=== PATIENT | female | born 1980 | race Caucasian/White ===

== ENCOUNTER 2021-12-14 09:29 | Outpatient (CLI) | payer OTHER, SELFPAY ==
--- NOTE | ~2021-12-14 | US_ITS ---
EXAMINATION:US venous doppler LE LT INDICATION:Left leg edema and pain TECHNIQUE: Multiple grayscale, color flow and Doppler images of the left lower extremity deep venous systems were obtained and reviewed. COMPARISON:No prior studies for comparison. FINDINGS: The common femoral, superficial femoral and popliteal veins demonstrate normal respiratory variation, augmentation and compressibility. Color flow is also seen within the posterior tibial, pe roneal, greater saphenous and profunda veins. IMPRESSION: 1: No lower extremity deep venous thrombosis. Reviewed, dictated and finalized at location B. [employer]
== END 2021-12-14 09:30 | disposition home or self-care (01) ==
PROVIDERS: PCP Family Medicine; Visit Provider Obstetrics & Gynecology
DX: R60.0 Localized edema (principal)
CPT/HCPCS: 93971

== ENCOUNTER 2022-02-06 14:30 | Outpatient (RCR) | payer OTHER, SELFPAY ==
--- NOTE | 2022-02-07 10:05 | PC.NURSE ---
In - 1430 Out -1638 Reason for visit: Latch issues History: Mother delivered Primary C/S at [facility] on 01/05/2022 after SROM, labor Augmented and FHT's going down with contraction and pushing for 1 hour , then C/S. Mother has a history of low progesterone, endometriosis removal 10 yrs ago, and doesn't recall a large blood loss after delivery or any other complications. Mother states she desires to breastfeed and has a Spectra pump but has not initiated pumping. She agrees that she feels a let down after a couple of min of infant nursing. Infant born at 38 w 6 d and has a history of a tied frenulum that was clipped at the hospital. There has been supplementation with formula through the night time at least once in a 24 hour day. has had 8 wets in 24 hours and 5-6 stools. Stool is yellow, pasty and some seediness. Observations: Mother has everted nipples with no evidence of injury. Breast are similar in size and shape with no redness. Mother is unsure of when her milk came in but has milk now. Infant has a wide open gape after encouragement for mother to allow time to wait for the 130-150 degree open for optimal latching to attempt to get more than nipple into infant's mouth. Mother's nipples are approximately 21 mm long. Mother latches and denies any pain. Infant detach due to latch observed to not be 130-150 degrees and there is not good rocking motion or swallowing. Nipple is slightly misshaped and mother visualized the change in her nipple. When latches optimally to the breast swallowing frequently can be heard as the let down occurs. detaches after 15-20 min and nipple is not misshaped. Mother voiced understanding of the difference in latch and stimulating to drink at the breast and not suckle on the nipple. After mother had breast fed on both breast was weighed and there was a 10 gm increase. On the first attempt at infant had readjusted, mother had no pain or discomfort but voiced noticing the difference between infant drinking at the breast versus suckle for comfort. demonstrates the ability to latch effectively with the new range of tongue movement over the gum line freely. Mother offered both breast for a second time and RN encouraged more assertive teaching infant to latch optimally, drinking at the breast with more breast into mouth. Due to infant voiding a great amount on the scale we were unsuccessful at obtaining an accurate post feed weight. Infant had a yellow, seedy, and moderate size stool during the visit as well. B.W. was 7lbs 5oz and today the weight is 7 lbs 14 oz with only a diaper. Plan of Care: Mother plans to be assertive with stimulating to wake and drink at the breast rather than suckle for comfort. Parents are prepared with skills, guide resource, to put forth effort to obtain a good position for and to change positions when needed, undress for wakefulness if needed, and to assure optimal latching for good transferring of milk and improve milk production 10-12 times in 24 hours listening and watching for swallowing during feeding time instead of suckling on the nipple. Assessed and reviewed Patient's personal spectra 1 pump flange fit, cleaning and care, there is to be no pain with pumping, power pumping for increasing milk supply, and collection/storage of human milk. Follow up plans: There is a plan to follow up with a phone call to assess how things are going. Reviewed reasons to call ICP.
== END 2022-05-07 23:59 | disposition home or self-care (01) ==
LOC: ANHOBOP 14:30
PROVIDERS: PCP Family Medicine; Visit Provider Pediatrics
DX: Z39.1 Encounter for care and examination of lactating mother (principal)
CPT/HCPCS: 99204; G0463

== ENCOUNTER 2024-07-23 12:52 | Outpatient (CLI) | payer OTHER, SELFPAY ==
--- NOTE | ~2024-07-23 | MMUS_ITS ---
EXAMINATION: MM diagnostic quoc BI w porfirio, US breast BI complete HISTORY: Galactorrhea TECHNIQUE: Additional 3-D tomosynthesis images of the breasts were performed and synthetic 2-D images were generated. CAD analysis was submitted and interpreted. High resolution complete bilateral breas t ultrasound was performed. COMPARISON: None BREAST PARENCHYMAL COMPOSITION: Dense: The breasts are extremely dense, which lowers the sensitivity of mammography. FINDINGS: MAMMOGRAPHIC FINDINGS: There are no suspicious masses, calcifications or architectural distortion in either breast to sugges t malignancy. ULTRASOUND: Complete US of all 4 quadrants of the breast/s and retroareolar region was reviewed. Right breast: Normal heterogeneous echotexture without focal solid or cystic mass. Left breast: At 12:00 near the nipple there is an oval circumscribed parallel oriented hypoechoic 3 m m mass without internal vascularity or significant posterior features, likely benign. IMPRESSION: 1. Probable benign 3 mm left breast mass 12:00 near the nipple. 2. Recommend 6 month follow-up Limited left breast ultrasound BI-RADS category 3, probably benign findings. Reviewed, dictated and finalized at location B. IMPRESSION: 1. Probable benign 3 mm left breast mass 12:00 near the nipple. 2. Recommend 6 month follow-up Limited left breast ultrasound BI-RADS category 3, probably benign findings.
== END 2024-07-23 12:53 | disposition home or self-care (01) ==
PROVIDERS: PCP Family Medicine; Visit Provider Family Medicine
DX: N64.3 Galactorrhea not associated with childbirth (principal)
CPT/HCPCS: 76641; 77062; 77066; G0279

== ENCOUNTER 2025-02-10 10:23 | Outpatient (CLI) | payer OTHER, SELFPAY ==
--- NOTE | ~2025-02-10 | US_ITS ---
US breast LT limited 02/10/2025 10:51 Indication: Follow-up left breast mass Procedure: High-resolution Limited ultrasound of the breasts Comparison: 07/23/2024 Findings: At 12:00 near the nipple there is an oval circumscribed parallel oriented hypoechoic mass w ithout internal vascularity. There is posterior acoustic enhancement. This mass measures 3 mm without significant change from prior study. Impression: 1: Stable left breast mass at 12:00 near the nipple measuring 3 mm, likely benign. BI-RADS CATEGORY 3-PROBABLY BENIGN FINDING RECOMMENDATION: Six-month follow-up bilateral mammogram and Limited left breast ultrasound recommende d. Reviewed, dictated and finalized at location A. Impression: 1: Stable left breast mass at 12:00 near the nipple measuring 3 mm, likely bri gn. BI-RADS CATEGORY 3-PROBABLY BENIGN FINDING RECOMMENDATION: Six-month follow-up bilateral mammogram and Limited left breast ultrasound recommended.
--- OUTSIDE RECORDS SUMMARY | 2025-02-10 11:41 | XMS_ITS | Clinical Summary ---
Author Organization [facility] Address [address] [place] [address] Care Team Providers Care Supervisor Lump Room Name Role Phone Nicho Roger MD Primary Care Provider [phone] Source Comments [facility],non-owned Affiliates and Associated Physician Practices is amultiple site organization consisting of ambulatory clinics and hospital sitesin [place], [place], [place] and [place]. This disclosure is being madepursuant to the Care Everywhere program and may not contain all information available regarding this patient. Last updated 18.[facility] [employer] Allergies Active Allergy Reactions Criticality Noted Date Comments Amoxicillin Diarrhea 12/03/2021 Medications * Be aware that medications may not be up to date on this document. Alwaysverify current medications with the patient. Docosahexaenoi c Acid ( DHA) 200 MG 2 Active Misc. Devices (BREAST PUMP) MISCIndication s:34 weeks gestation of (HCC) Use 1 Units as directed 1 Each 2 Active traMADol (ULTRAM) 50 MG tablet Take 1 (one) tablet by mouth every 6 hours as needed 20 tablet 2 Active acetaminophen (TYLENOL) 325 MG tablet Take 2 (two) tablets by mouth every 6 hours as needed for Fever or Pain Maximum allowable Acetaminophen amount = 4 Grams (4000 mg) / 24 hours. 2 Active ibuprofen (MOTRIN) 600 MG tablet Take 1 (one) tablet by mouth every 6 hours as needed for Pain 30 tablet 2 2 Active magnesium hydroxide (MILK OF MAGNESIA) 400 MG/5ML suspension Take 30 mL by mouth every 4 hours as needed for Constipation Active Active Problems Problem Noted Date Diagnosed Date care and examination 02/18/2022 Premature rupture of membranes in , ant epartum 01/08/2022 AMA (advanced maternal age) multigravida 35+ 38 weeks gestation of 11/12/2021 Resolved Problems Problem Noted Date Diagnosed Date Resolved Date , incidental 01/05/20222021 Immunizations Immunization Administration Dates Next Due MMR 01/06/2022(Deferred: Patient Condition - p-atient rubella immune) TDAP (7yrs+) 01/06/2022(Deferred: Patient Con dition),11/12/2021 Family History Medical History Relation Name Comments Cancer - Prostate Maternal Grandfather Cancer - Skin, Melanoma Maternal Grandfather CAD (Coronary Artery Disease) Maternal Grandmother Diabetes - Type 2 Maternal Grandmother Relation Name Status Comments Maternal Grandfather Maternal Grandmother Social History Tobacco Use Types Packs/Day Years Used Date Smoking Tobacco: Never Smokeless Tobacco: Never Alcohol Use Standard Drinks/Week Comments Not Currently 0 (1 standard drink = 0.6 oz pur e alcohol) PHQ-2 Answer Date Recorded Patient Health Questionnaire-2 Score 0 10/23/2024 [place] Depression Scale Answer Date Recorded RETIRED: Total Score 2 01/07/2022 Last EPDS Self Harm Result Not on file 01/07 Comments No Sex and Gender Information Value Date Recorded Sex Assigned at Not on file Legal Sex Female 4:24 AM [employer] Gender Identity Not on file Sexual Orientation Not on file Last Filed Vital Signs Vital Sign Reading Time Taken Comments Blood Pressure 100/58 02/18/2022 1:09 PM CDT Pulse 57 01/08/2022 10:20 AM CDT Temperature 36.7 C (98 F) 01/08/2022 10:20 AM CDT Respiratory Rate 14 01/07/2022 1:26 AM CDT Oxygen Saturation 100% 01/08/2022 10:20 AM CDT Inhaled Oxygen Concentration - - Weight 55.3 kg (122 lb) 02/18/2022 1:09 PM CDT Height 162.6 cm (5' 4 ) 01/05/2022 7:27 AM CDT Body Mass Index 20.94 01/05/2022 7:27 AM CDT Plan of Treatment Health Maintenance Due Date Last Done Comments LIPID TESTING 1981 MAMMOGRAM 1981 HEPATITIS C SCREENING 09/10/1999 HEPATITIS B VACCINE (1 of 3 - 19+ 3-dose series) 2000 COVID-19 VACCINE (4 - 2023-2 5 season) 2024 09/27/2021, 03/08/2021, 12/09/2020 DEPRESSION SCREENING 10/20/2024 PAP SMEAR 02/18/2025 02/18/2022, 02/18 (Done Outside Per Patient) INFLUENZA VACCINE (Season Ended) 2025 07/16/2021 ZOSTER VACCINE (1 of 2) 2031 DTAP/TDAP/TD VACCINES (2 - T d or Tdap) 11/12/2031 11/12/2021 HIV SCREENING Completed 06/15/2021 HIB VACCINE Aged Out No longer eligi ble based on patient's age to complete this topic HPV VACCINE Aged Out No longer eligi ble based on patient's age to complete this topic MENINGOCOCCAL (Group B) VACCINE SHARED DECISION-MAKING Aged Out No longer eligible based on patient's age to complete this topic MENINGOCOCCAL GROUPS A/C/Y/W VACCINE Aged Out No longer eligible based on patient's age to complete this topic PNEUMOCOCCAL VACCINE Aged Out No long er eligible based on patient's age to complete this topic Procedures Procedure Name Priority Date/Time Associated Diagnosis Comments PAP IG LB RFLX HPV APTIMA ASCU Routine 02/18/2022 2:10 PM CDT care and examination OB CONSOLE (EXTERNAL RESULTS) Routine 06/15/2021 from Last 3 Months or Most Recently Relevant to Health Maintenance Results * PAP IG LB RFLX HPV APTIMA ASCU (02/18/2022 2:10 PM CDT) Diagnosis [facility] INSURANCE BILL Comment:NEGATIVE FOR INTRAEP ITHELIAL LESION OR MALIGNANCY. Specimen Adequacy [facility] INSURANCE BILL Comment: Satisfactory for evaluation. Endocervical and/or squamous metaplastic cells (endocervical component) are present. Clinician Provided ICD10 [facility] INSURANCE BILL Comment:Z39.2 Performed by [facility] INSURANCE BILL Comment:Lacy Spencer, Cyto technologist (ASCP) Comment . [facility] INSURANCE BILL Note [facility] INSURANCE BILL Comment: The Pap smear is a screening test designed to aid in the detection of premalignant and malignant conditions of the uterine cervix. It is not a diagnostic procedure and should not be used as the sole means of detecting cervical cancer. Both false-positive and false-negative reports do occur. . IGLBP CPT Code Automation [facility] INSURANCE BILL Comment: This liquid based ThinPrep(R) pap test was screened with the use of an image guided system. Note [facility] INSURANCE BILL Comment: The HPV DNA reflex criteria were not met with this specimen result therefore, no HPV testing was performed. . Pathology/Cytolog y ENTIRE ENDOCERVIX / Unknown 02/18/2022 2:10 PM CDT 02/19/2022 Narrative [facility] INSURANCE BILL - 02/21/2022 5:08 PM CDT No. of containers..01 ThinPrep Vial Resulting Agency Comment Lab Testing performed at: [facility] [id number] Nicho Gupta MD LAB - PATHOLOGY/CYTOLOGY LINNEA DORAN Final Result [facility] INSURANCE BILL [address] [place] [address] * OB CONSOLE (EXTERNAL RESULTS) (06/15/2021) Hemoglobin (EXTERNAL RESULT) 12.9 gm/dL Hematocrit (EXTERNAL RESULT) ABO (External Results) B Rh Type (EXTERNAL RESULT) + Antibody Screen (EXTERNAL RESULT) neg Antibody Identification (EXTERNAL RESULT) Antibody Titer (EXTERNAL RESULT) MCV (EXTERNAL RESULT) HIV (EXTERNAL RESULT) neg RPR (EXTERNAL RESULT) NR Rubella Antibody IgG (EXTERNAL RESULT) Immune OB Blood Sugar (EXTERNAL RESULT) 88 Fasting Glucose (EXTERNAL RESULTS) GTT 1 Hour Glucose (EXTERNAL) GTT 2 Hour Glucose (EXTERNAL) Pap ThinPrep (EXTERNAL RESULT) Pap Smear (EXTERNAL RESULT) Chlamydia (EXTERNAL EXTERNAL) neg GC (EXTERNAL RESULT) neg HIV-2 Antibody (EXTERNAL RESULT) HIV-1/HIV 2 Antibody (EXTERNAL RESULT) HIV-1/2 Antibody + p24 Antigen (EXTERNAL RESULT) Treponema pallidum Antibody (EXTERNAL RESULT) GTT 3 Hour (EXTERNAL) Interpretation BRICK BURNER HEAD (EXTERNAL RESULT) Human papillomavirus DNA Probe (EXTERNAL RESULT) Human papillomavirus Genotype 16 (EXTERNAL RESULT) Glucose 1 Hour (EXTERNAL) Platelet Count (EXTERNAL RESULT) 221 Group B Strep Probe (EXTERNAL RESULT) Group B Strep Culture (EXTERNAL RESULT) Cystic Fibrosis Screen (EXTERNAL RESULT) Cystic Fibrosis Variant (EXTERNAL RESULT) Sickle Cell (EXTERNAL RESULT) Thalassemia (EXTERNAL RESULT) Blood Chromosome Analysis (EXTERNAL RESULT) Amnio Chromosome Analysis (EXTERNAL RESULT) Sequential Screen 1 (EXTERNAL RESULT) Sequential Screen 2 (EXTERNAL RESULT) Vipul-Sachs (EXTERNAL RESULT) Non Invasive Test NIPT (EXTERNAL RESULT) FAP Seq Interpretation (EXTERNAL RESULTS) Hemoglobin A1 (EXTERNAL RESULT) Hemoglobin A2 (EXTERNAL RESULT) Hemoglobin F (EXTERNAL RESULT) Hemoglobin S (EXTERNAL RESULT) Hemoglobin C (EXTERNAL RESULT) Hemoglobin E (EXTERNAL RESULT) Hemoglobin Other (EXTERNAL RESULT) BEN-A (EXTERNAL RESULT) BEN-A MoM (EXTERNAL RESULT) Alpha-Fetoprotein (EXTERNAL RESULT) AFP MoM (EXTERNAL RESULT) HCG AFP (EXTERNAL) Estriol AFP (EXTERNAL) UE3 MoM (EXTERNAL RESULT) Inhibin Dimeric (EXTERNAL RESULT) DARRELL Result (EXTERNAL RESULT) DARRELL MoM (EXTERNAL RESULT) hCG MoM (EXTERNAL RESULT) Alpha-Fetoprotein Interpretation (EXTERNAL RESULT) Urine Culture (EXTERNAL) T3 Free (EXTERNAL RESULT) Varicella zoster Virus Antibody IgG (EXTERNAL) HCG Quant (EXTERNAL) Glycohemoglobin A1C (EXTERNAL RESULT) Amphetamines (EXTERNAL RESULT) Barbiturates (EXTERNAL RESULT) Benzodiazepine (EXTERNAL RESULT) Buprenorine (EXTERNAL RESULT) Cannabinoids (EXTERNAL RESULT) Cocaine (EXTERNAL RESULT) Ethanol (EXTERNAL RESULT) MDMA Urine (EXTERNAL RESULT) Meperidine (EXTERNAL RESULT) Methadone Urine (EXTERNAL RESULT) Methamphetamine (EXTERNAL RESULT) Opiates Urine (EXTERNAL RESULT) Oxycodone Urine (EXTERNAL RESULT) Phencyclidine (EXTERNAL RESULT) Propoxyphene (EXTERNAL RESULT) Tricyclics Screen Urine Blood 06/15/2021 Nicho Gupta MD LAB - CHEMISTRY ORDERABLES Fi nal Result from Last 3 Months or Most Recently Relevant to Health Maintenance Insurance [employer] Member Subscriber Plan / Payer (Ef fective 2021-Present) Name:Karl Chavez Relation to Subscriber:Spouse Name:BerlinProsper bennett Date of :1985 (Home) Address: [address] [place] [address] Payer ID:[id number] (NAIC) Type:HMO Address: [place] [phone] Advance Directives * Full Code (Latest Code Status on File) Date Activated Date Inactivated Comments 01/05/2022 10:01 PM 01/08/2022 6:56 PM * Full Code Date Activated Date Inactivated Comments 01/05/2022 8:25 AM 01/05/2022 10:01 PM Care Teams Supervisor Lump Room Relationship Specialty Start Date End Date Nicho Roger MD [address] [place] [id number] PCP - General Family Medicine 11/12/21
== END 2025-02-10 10:24 | disposition home or self-care (01) ==
PROVIDERS: PCP Family Medicine; Visit Provider Family Medicine
DX: N63.42 Unspecified lump in left breast, subareolar (principal); M81.0 Age-related osteoporosis without current pathological fracture
CPT/HCPCS: 76642